=== PATIENT | male | born 1955 | race Caucasian/White ===

== ENCOUNTER 2018-02-21 22:50 | Inpatient (IN) | payer OTHER ==
[~2018-02-21] VITALS: Ht 177.8 cm; Wt 108.0 kg
[2018-02-21 23:20] LABS: BASOPHILS % (AUTO) 0 % (0-10); EOSINOPHILS # (AUTO) 0.2 10^3/uL (0.0-0.3); EOSINOPHILS % (AUTO) 3 % (0-10); HEMATOCRIT 50 % (40-54); HEMOGLOBIN 18.5 G/DL (13.3-17.7); LYMPHOCYTES # (AUTO) 2.2 X 10^3 (1.0-4.0); LYMPHOCYTES % (AUTO) 25 % (12-44); MEAN CORPUSCULAR HEMOGLOBIN 34 PG (25-34); MEAN CORPUSCULAR HGB CONC 37 G/DL (32-36); MEAN CORPUSCULAR VOLUME 91 FL (80-99); MEAN PLATELET VOLUME 11.2 FL (7.4-10.4); MONOCYTES # (AUTO) 0.7 X 10^3 (0.0-1.0); MONOCYTES % (AUTO) 8 % (0-12); NEUTROPHILS # (AUTO) 5.8 X 10^3 (1.8-7.8); NEUTROPHILS % (AUTO) 65 % (42-75); PLATELET COUNT 154 10^3/uL (130-400); RED BLOOD COUNT 5.51 10^6/uL (4.35-5.85); RED CELL DISTRIBUTION WIDTH 13.5 % (10.0-14.5); WHITE BLOOD COUNT 9.1 10^3/uL (4.3-11.0)
--- NOTE | 2018-02-21 23:28 | ED Fall/Injury ---
General Chief Complaint: Head/Cervical Problems Stated Complaint: FALL;NECK PAIN Source: patient, family Exam Limitations: clinical condition History of Present Illness Date Seen by Provider: Feb 21, 2018 Time Seen by Provider: 23:00 Initial Comments Here with report of anterior neck injury. Patient was apparently walking back from his garage in the dark when he tripped over a chair and then struck his neck on the leg of the chair. Swelling noted. Patient is coughing up blood. Report shortness of air with some stridor. He is having somewhat difficulty talking. Occurred around 930 p.m. Denies other injury. Occurred: this evening Severity: moderate, severe Injuries/Pain Location: neck Context: tripped Loss of Consciousness: no loss of consciousness Modifying Factors: Worse With Movement Associated Symptoms (Fall): No Abdominal Pain, No Chest Pain, No Confusion, No Nausea/Vomiting; Shortness of Air Allergies and Home Medications Allergies Coded Allergies: No Known Drug Allergies (Unverified , 02/21/18) Patient Home Medication List Home Medication List Reviewed: Yes (takes 2 meds for blood pressure.) Review of Systems Review of Systems Constitutional: see HPI; No chills, No fever Eyes: No Symptoms Reported Ears, Nose, Mouth, Throat: see HPI, throat pain, throat swelling Respiratory: dyspnea on exertion, short of breath, stridor Cardiovascular: no symptoms reported Gastrointestinal: no symptoms reported; No abdominal pain, No nausea, No vomiting Genitourinary: no symptoms reported Review of systems Limited due to patient's clinical condition. All Other Systems Reviewed Negative Unless Noted: Yes Past Rspbmth-Sccihg-Tvriml Hx Past Med/Social Hx: Reviewed Nursing Past Med/Soc Hx Patient Social History Alcohol Use: Regular Use Alcohol Beverage of Choice: Beer Recreational Drug Use: Yes (mj) Smoking Status: Current Everyday Smoker Past Medical History Surgeries: No Respiratory: Yes Sleep Apnea, COPD Cardiac: Yes Hypertension Neurological: No Genitourinary: No Gastrointestinal: No Musculoskeletal: Yes Gout Cancer: No Family Medical History Reviewed Nursing Family Hx No Pertinent Family Hx Physical Exam Vital Signs Vital Signs - First Documented 02/21/18 02/21/18 22:50 23:43 Pulse 73 Resp 14 B/P (MAP) 153/117 (129) Pulse Ox 94 O2 Delivery Room Air O2 Flow Rate 10.00 FiO2 100 Capillary Refill : Height, Weight, BMI Height: '" Weight: lbs. oz. kg; BMI Method: General Appearance: WD/WN, mild distress HEENT: other (bilateral scleral injection. Swelling noted anterior Neck below the larynx with stridorous breathing) Neck: full range of motion, supple, other (swelling to the mid neck anterior below the cricothyroid cartilage.) Cardiovascular: regular rate, rhythm, no murmur Respiratory: no accessory muscle use, respiratory distress, stridor, wheezing, expiration Gastrointestinal: non tender, soft Back: normal inspection, no CVA tenderness, no vertebral tenderness Extremities: non-tender, normal inspection Neurologic/Psychiatric: alert, oriented x 3 Skin: warm/dry, other (erythema and small abrasion to the anterior neck with swelling noted below the area of the cricothyroid cartilage.) Clyde Coma Score Best Eye Response: (4) Open Spontaneously Best Verbal Response: (5) Oriented Best Motor Response: (6) Obeys Commands Progress/Results/Core Measures Results/Orders Lab Results Laboratory Tests Test 02/21/18 23:00 02/22/18 01:40 02/22/18 01:51 Range/Units White Blood Count 9.1 4.3-11.0 10^3/uL Red Blood Count 5.51 4.35-5.85 10^6/uL Hemoglobin 18.5 H 13.3-17.7 G/DL Hematocrit 50 40-54 % Mean Corpuscular Volume 91 80-99 FL Mean Corpuscular Hemoglobin 34 25-34 PG Mean Corpuscular Hemoglobin Concent 37 H 32-36 G/DL Red Cell Distribution Width 13.5 10.0-14.5 % Platelet Count 154 130-400 10^3/uL Mean Platelet Volume 11.2 H 7.4-10.4 FL Neutrophils (%) (Auto) 65 42-75 % Lymphocytes (%) (Auto) 25 12-44 % Monocytes (%) (Auto) 8 0-12 % Eosinophils (%) (Auto) 3 0-10 % Basophils (%) (Auto) 0 0-10 % Neutrophils # (Auto) 5.8 1.8-7.8 X 10^3 Lymphocytes # (Auto) 2.2 1.0-4.0 X 10^3 Monocytes # (Auto) 0.7 0.0-1.0 X 10^3 Eosinophils # (Auto) 0.2 0.0-0.3 10^3/uL Basophils # (Auto) 0.0 0.0-0.1 10^3/uL Prothrombin Time 12.6 12.2-14.7 SEC INR Comment 0.9 0.8-1.4 Activated Partial Thromboplast Time 29 24-35 SEC Sodium Level 139 135-145 MMOL/L Potassium Level 3.2 L 3.6-5.0 MMOL/L Chloride Level 101 98-107 MMOL/L Carbon Dioxide Level 26 21-32 MMOL/L Anion Gap 12 5-14 MMOL/L Blood Urea Nitrogen 13 7-18 MG/DL Creatinine 0.74 0.60-1.30 MG/DL Estimat Glomerular Filtration Rate > 60 BUN/Creatinine Ratio 18 Glucose Level 95 70-105 MG/DL Calcium Level 9.6 8.5-10.1 MG/DL Corrected Calcium 8.5-10.1 MG/DL Total Bilirubin 0.5 0.1-1.0 MG/DL Aspartate Amino Transf (AST/SGOT) 26 5-34 U/L Alanine Aminotransferase (ALT/SGPT) 29 0-55 U/L Alkaline Phosphatase 80 40-136 U/L Total Protein 7.9 6.4-8.2 GM/DL Albumin 4.6 H 3.2-4.5 GM/DL Serum Alcohol 111 H <10 MG/DL Urine Color YELLOW Urine Clarity SLIGHTLY CLOUDY Urine pH 5 5-9 Urine Specific [place] 1.010 L 1.016-1.022 Urine Protein 2+ H NEGATIVE Urine Glucose (UA) NEGATIVE NEGATIVE Urine Ketones NEGATIVE NEGATIVE Urine Nitrite NEGATIVE NEGATIVE Urine Bilirubin NEGATIVE NEGATIVE Urine Urobilinogen NORMAL NORMAL MG/DL Urine Leukocyte Esterase NEGATIVE NEGATIVE Urine RBC (Auto) NEGATIVE NEGATIVE Urine RBC NONE /HPF Urine WBC NONE /HPF Urine Squamous Epithelial Cells RARE /HPF Urine Crystals NONE /LPF Urine Bacteria FEW H /HPF Urine Casts PRESENT /LPF Urine Hyaline Casts 2-5 H /LPF Urine Mucus NEGATIVE /LPF Urine Culture Indicated NO Blood Gas Puncture Site RIGHT RAD Blood Gas Patient Temperature 96.8 Arterial Blood pH 7.28 *L 7.37-7.43 Arterial Blood Partial Pressure CO2 54 H 35-45 MMHG Arterial Blood Partial Pressure O2 66 L 79-93 MMHG Arterial Blood HCO3 25 23-27 MMOL/L Arterial Blood Total CO2 26.7 21.0-31.0 MMOL/L Arterial Blood Oxygen Saturation 94 94-100 % Arterial Blood Base Excess -1.1 -2.5-2.5 MMOL/L Shashank Test POSITIVE Blood Gas Ventilator Setting YES Blood Gas Inspired Oxygen 100% My Orders Orders - SRIKANTH PARRA MD Alcohol (02/21/18 23:11) Cbc With Automated Diff (02/21/18 23:11) Comprehensive Metabolic Panel (02/21/18 23:11) Chest 1 View, Ap/Pa Only (02/21/18 23:11) Cervical Spine 1 View (02/21/18 23:11) Saline Lock/Iv-Start (02/21/18 23:11) Protime With Inr (02/21/18 23:21) Partial Thromboplastin Time (02/21/18 23:21) Chest 1 View, Ap/Pa Only (02/21/18 ) Lidocaine 1% Inj 20 Ml (Xylocaine 1% Inj (02/21/18 23:37) Ketamine Injection (Ketalar Injection) (02/21/18 23:38) Ns Iv 1000 Ml (Sodium Chloride 0.9%) (02/21/18 23:48) Ct Neck (Soft Tissue) W (02/22/18 00:01) Glycopyrrolate Injection (Robinul Inject (02/21/18 23:52) Propofol Drip (Icu) (Diprivan Drip (Icu) (02/21/18 23:54) Chest 1 View, Ap/Pa Only (02/22/18 ) Albuterol/Ipra Inhalation Soln (Duoneb I (02/22/18 00:01) Iohexol Injection (Omnipaque 350 Mg/Ml 1 (02/22/18 01:00) Ns (Ivpb) (Sodium Chloride 0.9%) (02/22/18 01:00) Midazolam Injection (Versed Injection) (02/22/18 01:14) Ua Culture If Indicated (02/22/18 01:26) Sputum Culture (02/22/18 01:26) Albuterol/Ipra Inhalation Soln (Duoneb I (02/22/18 01:40) Arterial Blood Gas (02/22/18 01:54) Medications Given in ED Current Medications Medications Dose Ordered Sig/Endy Route Start Time Stop Time Status Last Admin Dose Admin Albuterol/ Ipratropium 3 ml STK-MED ONCE .ROUTE 02/22/18 00:01 02/22/18 00:04 DC 02/22/18 00:04 3 ML Glycopyrrolate 0.4 mg STK-MED ONCE .ROUTE 02/21/18 23:52 02/21/18 23:56 DC 02/22/18 01:00 0.4 MG Iohexol 100 ml ONCE ONCE IV 02/22/18 01:00 02/22/18 01:01 DC 02/22/18 00:59 75 ML Ketamine HCl 500 mg STK-MED ONCE .ROUTE 02/21/18 23:38 02/21/18 23:41 DC 02/22/18 01:00 500 MG Lidocaine HCl 20 ml STK-MED ONCE .ROUTE 02/21/18 23:37 02/21/18 23:40 DC 02/21/18 23:43 20 ML Midazolam HCl 5 mg STK-MED ONCE .ROUTE 02/22/18 01:14 02/22/18 01:17 DC 02/22/18 01:26 5 MG Propofol 100 ml @ ud STK-MED ONCE IV 02/21/18 23:54 02/21/18 23:58 DC 02/22/18 00:58 0 MLS/HR Sodium Chloride 250 ml ONCE ONCE IV 02/22/18 01:00 02/22/18 01:01 DC 02/22/18 01:00 80 ML Sodium Chloride 1,000 ml @ ud STK-MED ONCE .ROUTE 02/21/18 23:48 02/21/18 23:51 DC 02/22/18 01:00 0 MLS/HR Vital Signs/I&O 02/21/18 02/21/18 02/22/18 02/22/18 22:50 23:43 00:04 00:48 Pulse 73 70 Resp 14 14 B/P (MAP) 153/117 (129) Pulse Ox 94 100 94 93 O2 Delivery Room Air T Piece Ambu Bag O2 Flow Rate 10.00 10.00 FiO2 100 100 100 02/22/18 00:58 Pulse 82 B/P (MAP) 173/111 Progress Progress Note : Progress Note Seen and evaluated. Concerns for tracheal injury due to history and stridorous sounds with coughing of blood. I discussed the case with Dr. Lazar and will call anesthesiology. I did discuss the case with Dr. Egan at 2306. We will get on-call nurse radio communication coordinator in for help with intubation as patient has stridor with tracheal trauma and concerns for difficult intubation. I did discuss the case with Dr. Lazar at 2300 and he agrees with intubation. This will be a complex intubation and we will consider intubating with bronchoscope. IV, labs, chest x-ray and lateral neck x-ray ordered. Pending arrival of anesthesiology team. I did discuss my concerns and findings with the patient and family who agree to intubation. In the interim we have patient on humidified high flow O2 help with breathing and preoxygenation. Monitor patient. 2338: Anesthesia at bedside and we are working on plan for intubation that is likely to be difficult. 2343: We will initiate lidocaine neb treatment. 2347: Patient having some increased compromise so we will proceed with intubation via bronchoscope through intubating LMA. 2358: Patient received a total of 40 mg of ketamine and 2.5 mg of Versed. Tube placed by anesthesia. 20 mg of etomidate and 200 mg of succinylcholine was given at time of tube placement and exchange. Patient also received glycopyrrolate from anesthesia her secretions. 0011: Post intubation ET tube and OG tube placement chest x-ray shows tubes in good position. Patient initiated on propofol drip. CT neck ordered. Family updated. 0022: Patient to CT scan. 0052: CT scan complete but pending results. I did update Dr. Lazar on the case as I am concerned about air in the soft tissue in the neck. We will review the case with Dr. Prieto and consider admission versus transfer. 0130: CT results noted. I discussed the case with Dr. Prieto as well as on-call for ENT. Dr. Ramos is out of town until 02/26/18. Dr. Prieto is okay with admission as this is likely supportive care in nature and monitoring on vent while tracheal disruption heals. Patient to be admitted to Dr. Lazar with Dr. Prieto on consult to the ICU. I did advance the tube 2 cm to push balloon further past tracheal disruption. Patient on Diprivan drip and has had 2 doses of rocuronium. 0205: Current vent settings rate of 16 with tidal volume of 500 and PEEP of 8 and FiO2 50 percent. ABG has been ordered. Admit to ICU, critical but stable condition. Family updated on current findings and therapy. Patient is another care of [place]. concerned because they will need to be updated on patient condition and status. Diagnostic Imaging Diagonstic Imaging: Xray Plain Films/CT/US/NM/MRI: chest Comments No acute Diagonstic Imaging: Xray Plain Films/CT/US/NM/MRI: other (neck bilateral view) Comments One view lateral neck shows some air within the soft tissue Diagonstic Imaging: Xray Plain Films/CT/US/NM/MRI: chest Comments Endotracheal tube in good position and OG tube in good position Diagonstic Imaging: CT Plain Films/CT/US/NM/MRI: other Comments CT soft tissue neck with contrast shows fracture of thyroid cartilage, left parasagittal and right laterally, and resulting widening of the thyroid cartilage angulation. Extensive soft tissue gas and neck, most prominent towards left, likely related to airway perforation from thyroid Aurelia fracture. Associated fat stranding/edema. ET and NG tube noted. Reviewed: Reviewed Night Josafat Study, Reviewed by Me Critical Care Note Critical Care Start Time: 23:00 Stop Time: 02:05 Total Time (minutes) 60 Departure Communication (Admissions) Time/Spoke to Admitting Phy: 00:52 Time/Spoke to Consulting Phy: 01:30 Impression Primary Impression: Fracture, thyroid cartilage closed Qualified Codes: S12.8XXA - Fracture of other parts of neck, initial encounter Additional Impression: Injury of trachea Qualified Codes: S19.82XA - Other specified injuries of cervical trachea, initial encounter Disposition: ADMITTED INPATIENT Condition: Critical Admissions Decision to Admit Reason: Admit from ER (Trauma) Decision to Admit/Date: Feb 22, 2018 Time/Decision to Admit Time: 00:52 Departure-Patient Inst. Referrals: UNKNOWN (PCP) Primary Care Physician SRIKANTH PARRA MD Feb 21, 2018 23:28
[2018-02-21 23:32] LABS: INR 0.9 (0.8-1.4); PROTHROMBIN TIME PATIENT 12.6 SEC (12.2-14.7)
[2018-02-21 23:34] LABS: ALANINE AMINOTRANSFERASE 29 U/L (0-55); ALBUMIN 4.6 GM/DL (3.2-4.5); ALKALINE PHOSPHATASE 80 U/L (40-136); BILIRUBIN,TOTAL 0.5 MG/DL (0.1-1.0); BUN/CREATININE RATIO 18; CALCIUM 9.6 MG/DL (8.5-10.1); CARBON DIOXIDE 26 MMOL/L (21-32); CHLORIDE 101 MMOL/L (98-107); CREATININE SERUM 0.74 MG/DL (0.60-1.30); GFR ESTIMATED > 60; GLUCOSE 95 MG/DL (70-105); POTASSIUM 3.2 MMOL/L (3.6-5.0); SODIUM 139 MMOL/L (135-145); TOTAL PROTEIN 7.9 GM/DL (6.4-8.2)
[2018-02-21] MEDS ORDERED: LIDOCAINE 1% INJ 20 ML 20 ML VIAL ONE (23:37)
[2018-02-21] MEDS ORDERED: KETAMINE HCL 100 MG/ML 5 ML VIAL ONE (23:38)
[2018-02-21] MEDS ORDERED: NS IV 1000 ML 1,000 ML ONE (23:48)
[2018-02-21] MEDS ORDERED: GLYCOPYRROLATE 0.2 MG/ML (ROBINUL) 2 ML VIAL ONE (23:52)
[2018-02-21] MEDS ORDERED: PROPOFOL DRIP (ICU) 100 ML IV ONE (23:54)
[2018-02-22] VITALS (32 sets, daily range): BP systolic 99–134; BP diastolic 63–81
[2018-02-22] MEDS ORDERED: RT-ALBUTEROL/IPRATROPIUM 3 ML (DUONEB) VIAL ONE ×2 (00:01→01:40)
--- NOTE | 2018-02-22 00:42 | Anesthesia-Procedure Note ---
Procedures/Interventions Procedure Start/Stop/Diagnosis Date of Procedure: Feb 21, 2018 Start Time: 23:38 Stop Time: 23:55 Intubation RSI: No 100% pre-Ox, [id number]: Yes Intubation Method: orotracheal Breath Sounds after Intubation: bilateral-equal ETT Securred @ (cm): 22 Intubated with ease: No Post Intubation Xray-done: Yes Care turned over to: ED staff Additional Procedures Procedures Called to ED to assist with an intubation with a traumatic neck injury. Arrived to ED and spoke with Dr. Hay and the decision was made that the fiberoptic intubating scope may be required. I retrieved the fiberoptic scop and tower than returned to the ED. After a quick evaluation of the patient it was decided that I would perform the necessary intubation with assistance from Dr. Hay. Patient had what appeared to be an increased work of breathing and audible stridor. A Lidocaine breathing treatment was given. Shortly after the breathing treatment was started Patient felt like he could not breath. 20 mg of Ketamine was given and 1 mg of Versed at this time. Once patient was slightly more relaxed I asked the patient to open his mouth and inserted a 3.5 Air-q LMA. The BVM was quickly attached to the LMA and positive pressure assisted ventilation was performed. With the decreased work of breathing, I used the fiberoptic intubating scope to look deeper into the patients airway through the LMA. The patient was then given 20mg more of Ketamine and 1.5 mg of Versed. I placed the fiberoptic intubating scope back through the LMA. A small opening was note to the right of midline, maneuvered the scope through the small opening and noted the tracheal rings. The 7.0 oett that was loaded onto the intubating scope was then advanced into the trachea over the scope. The scope was removed and the BVM was placed on the oett and positive pressure ventilation was performed by myself. ETCO2 color change was noted as well as bilateral breath sounds by Dr. Hay. Medication for sedation and paralyzation was ordered by Dr. Hay. I gave 0.4mg of glycopyrrolate to help decrease secretions. The Air-Q removal stylet was then used to remove the LMA from around the oett. Breathe sounds were then checked again by Dr. Hay noting no left chest breath sounds, oett pulled back to 22 cm at the lip and left sides breath sounds returned. Oett care to RT, and patient care to ED staff. Brief updated given to significant other. CORWIN REYNOLDS CRNA Feb 22, 2018 00:42
[2018-02-22] MEDS ORDERED: IOHEXOL 350 MG/ML 100 ML (OMNIPAQUE 350) VIAL IV ONE (01:00)
[2018-02-22] MEDS ORDERED: NS 250 ML (IVPB) BAG IV ONE (01:00)
[2018-02-22] MEDS ORDERED: MIDAZOLAM 5 MG/5 ML (VERSED) VIAL ONE (01:14)
[2018-02-22 01:51] LABS: BILIRUBIN,URINE NEGATIVE (NEGATIVE); CLARITY,URINE SLIGHTLY CLOUDY; COLOR,URINE YELLOW; GLUCOSE, URINE (UA) NEGATIVE (NEGATIVE); KETONES,URINE NEGATIVE (NEGATIVE); LEUKOCYTE ESTERASE ,URINE NEGATIVE (NEGATIVE); NITRITE,URINE NEGATIVE (NEGATIVE); PH,URINE 5 (5-9); PROTEIN,URINE 2+ (NEGATIVE); UROBILINOGEN,URINE NORMAL (NORMAL)
[2018-02-22 02:00] LABS: ABG BASE EXCESS -1.1 MMOL/L (-2.5-2.5); ABG OXYGEN SATURATION 94 % (94-100); ABG PCO2 54 MMHG (35-45); ABG PO2 66 MMHG (79-93); ABG TCO2 26.7 MMOL/L (21.0-31.0)
[2018-02-22 02:01] LABS: ABG PH 7.28 (7.37-7.43); ALLENS TEST POSITIVE; INSPIRED O2 100%; PATIENT TEMP 96.8; VENTILATOR YES
[2018-02-22 02:04] LABS: BACTERIA,URINE FEW /HPF; SQUAMOUS EPITHELIAL CELL,UR RARE /HPF
[2018-02-22] MEDS ORDERED: PROPOFOL DRIP (ICU) 100 ML IV SCH ×2 (03:15)
[2018-02-22] MEDS ORDERED: CATHETER FLUSH 10 ML SYR IV PRN (03:15)
[2018-02-22] MEDS ORDERED: NS IV 1000 ML 1,000 ML IV SCH (03:15)
[2018-02-22 03:40] LABS: BUN/CREATININE RATIO 18; CALCIUM 9.7 MG/DL (8.5-10.1); CARBON DIOXIDE 25 MMOL/L (21-32); CHLORIDE 101 MMOL/L (98-107); CREATININE SERUM 0.74 MG/DL (0.60-1.30); GFR ESTIMATED > 60; GLUCOSE 95 MG/DL (70-105); MAGNESIUM 2.3 MG/DL (1.8-2.4); PHOSPHORUS 2.9 MG/DL (2.3-4.7); POTASSIUM 3.2 MMOL/L (3.6-5.0); SODIUM 139 MMOL/L (135-145); TRIGLYCERIDES 225 MG/DL (<150)
[2018-02-22] MEDS ORDERED: NS (IVPB) 100 ML ONE (03:40)
[2018-02-22] MEDS ORDERED: fentaNYL (OMNICELL DRIP KIT ONLY) 250 MCG/5 ML AMP ONE (03:40)
[2018-02-22 04:08] LABS: ABG BASE EXCESS 2.4 MMOL/L (-2.5-2.5); ABG OXYGEN SATURATION 84 % (94-100); ABG PCO2 48 MMHG (35-45); ABG PH 7.37 (7.37-7.43); ABG PO2 44 MMHG (79-93); ABG TCO2 28.8 MMOL/L (21.0-31.0)
[2018-02-22 04:09] LABS: ALLENS TEST POSITIVE; INSPIRED O2 21%; VENTILATOR YES
[2018-02-22] MEDS: inSUlin ASPART (NovoLOG) 1 UNIT/0.01 ML (CHARGE PER UNIT) SC SCH ×3 (04:25→12:29)
[2018-02-22 05:18] LABS: ABG BASE EXCESS 2.6 MMOL/L (-2.5-2.5); ABG OXYGEN SATURATION 95 % (94-100); ABG PCO2 50 MMHG (35-45); ABG PH 7.36 (7.37-7.43); ABG PO2 67 MMHG (79-93); ABG TCO2 29.4 MMOL/L (21.0-31.0)
[2018-02-22 05:19] LABS: ALLENS TEST POSITIVE; INSPIRED O2 35%; VENTILATOR YES
[2018-02-22] MEDS ORDERED: CHLORHEXIDINE 0.12% SOLN 15 ML (PERIDEX) UDC PO PRN (05:30)
[2018-02-22] MEDS ORDERED: fentaNYL INJECTION 100 MCG/2 ML AMP IV PRN (05:30)
[2018-02-22] MEDS ORDERED: ONDANSETRON 4 MG/2 ML (SDV) Z0FRAN IV PRN (05:30)
[2018-02-22] MEDS: fentaNYL 1,250 MCG/NS 250 ML DRIP IV SCH ×4 (05:32→14:55)
[2018-02-22 05:42] LABS: BUN/CREATININE RATIO 21; CALCIUM 8.7 MG/DL (8.5-10.1); CARBON DIOXIDE 24 MMOL/L (21-32); CHLORIDE 105 MMOL/L (98-107); CREATININE SERUM 0.66 MG/DL (0.60-1.30); GFR ESTIMATED > 60; GLUCOSE 98 MG/DL (70-105); LIPASE 19 U/L (8-78); MAGNESIUM 2.1 MG/DL (1.8-2.4); PHOSPHORUS 3.9 MG/DL (2.3-4.7); POTASSIUM 3.3 MMOL/L (3.6-5.0); SODIUM 140 MMOL/L (135-145); TRIGLYCERIDES 277 MG/DL (<150)
--- NOTE | 2018-02-22 05:42 | Pulmonary Consultation ---
History of Present Illness History of Present Illness Date of Consultation 02/22/18 05:37 Time Seen by Provider: 05:00 Date of Admission History of Present Illness 62yo male presented to ED s/p mechanical fall and striking his neck on leg of chair. Pt started coughing up blood and stridor. Pt was also having dysphonia. PT was intubated in ED per anesthesia. CT of neck shows ruptured thyroid cartilage. Unable to obtain ROS pt is sedated on ventilator. Allergies and Home Medications Allergies Coded Allergies: No Known Drug Allergies (Unverified , 02/21/18) Past Tvgcbwz-Kmwprc-Jtmmcp Hx Past Med/Social Hx: Reviewed Nursing Past Med/Soc Hx Patient Social History Alcohol Use: Regular Use Number of Drinks Today: AA Alcohol Beverage of Choice: Beer Recreational Drug Use: Yes (mj) Smoking Status: Current Everyday Smoker Type Used: Cigarettes 2nd Hand Smoke Exposure: No Recent Foreign Travel: No Contact w/Someone Who Travel: No Recent Infectious Disease Expo: No Recent Hopitalizations: No Physical Abuse: No Sexual Abuse: No Seasonal Allergies Seasonal Allergies: No Past Medical History Surgeries: No Respiratory: Yes Sleep Apnea, COPD Currently Using CPAP: Yes Currently Using BIPAP: No Cardiac: Yes Hypertension Neurological: No Sexually Transmitted Disease: No HIV/AIDS: No Genitourinary: No Gastrointestinal: No Musculoskeletal: No Gout Endocrine: No HEENT: No Cancer: No Psychosocial: No Nursing Suicide Risk Score: 0 Integumentary: No Blood Disorders: No Adverse Reaction/Blood Tranf: No Family Medical History Reviewed Nursing Family Hx No Pertinent Family Hx Review of Systems Time Seen by Provider: 05:00 Sepsis Event Evaluation Height, Weight, BMI Height: 5'10.00" Weight: 238lbs. 0.0oz. 107.840531ma; 34.2 BMI Method:Stated Exam Exam Vital Signs Date Time Temp Pulse Resp B/P (MAP) Pulse Ox O2 Delivery O2 Flow Rate FiO2 02/22/18 05:00 52 14 104/67 (79) 100 Mechanical Ventilator 35.00 02/22/18 04:00 57 19 99/69 (79) 99 Mechanical Ventilator 21.00 02/22/18 03:45 60 19 100/63 (75) 99 Mechanical Ventilator 21.00 02/22/18 03:43 82 99 21 02/22/18 03:30 62 20 100/65 (77) 99 Mechanical Ventilator 21.00 02/22/18 03:28 107/70 02/22/18 03:15 62 22 107/70 (82) 98 Mechanical Ventilator 21.00 02/22/18 03:04 61 26 99 40 02/22/18 03:00 58 25 107/70 (82) 100 Mechanical Ventilator 21.00 02/22/18 03:00 100 Mechanical Ventilator 21 02/22/18 02:57 56 02/22/18 02:51 97.7 61 16 132/79 (96) 100 Mechanical Ventilator 21.00 02/22/18 02:30 73 14 107/67 99 Nasal Cannula 02/22/18 01:58 77 16 100 50 02/22/18 01:45 78 100 100 02/22/18 00:58 82 173/111 02/22/18 00:48 70 14 93 100 02/22/18 00:04 94 Ambu Bag 10.00 100 02/21/18 23:43 100 T Piece 10.00 100 02/21/18 22:50 73 14 153/117 (129) 94 Room Air Height & Weight Height: 5'10.00" Weight: 238lbs. 0.0oz. 107.718813cl; 34.2 BMI Method:Stated General Appearance: No Apparent Distress, WD/WN, Other (sedated on ventilator) HEENT: PERRL/EOMI, Normal ENT Inspection, Pharynx Normal Neck: Full Range of Motion, Normal Inspection, Non Tender, Supple Respiratory: Chest Non Tender, Normal Breath Sounds, No Accessory Muscle Use, No Respiratory Distress Cardiovascular: Regular Rate, Rhythm, No Edema, No Gallop, No JVD Capillary Refill: Less Than 3 Seconds Gastrointestinal: non tender, soft Extremity: Normal Capillary Refill, Normal Inspection, Normal Range of Motion Skin: Normal Color, Warm/Dry Lymphatic: No Adenopathy Results Lab Laboratory Tests 02/21/18 23:00 Assessment/Plan Assessment/Plan S/p fall with tracheal injury/thyroid cartilage fracture- causing subcutaneous emphysema in neck and compromised airway with stridor -PT emergently intubated per anesthesia for airway protection and impending respiratory failure. -Dr. Lazar is following -Dr. Ramos is consulted however out of town until Sunday. -I discussed with radiology and patient is going to need surgical repair of his trachea. I have also talked with [facility] Dr. Whiting ENT who agrees to with need of transfer. I will have patient transferred to [place] via helicopter if possible secondary to him being on ventilator. He is cardiovascularly stable at this time. RN is keeping him heavily sedated so less risk of loosing airway. Acute respiratory failure Obesity with JAYLAN Hypokalemia -replace per protocol Total time spent with patient, medical staff and discussing patient with radiology, and [facility] is 120min. Critical Care: Critically Ill Patient Time spent with patient (mins): 120 KYLAH HELM DO Feb 22, 2018 05:42
[2018-02-22] MEDS ORDERED: DILTIAZEM 25 MG/5 ML INJ (CARDIZEM) VIAL ONE (05:44)
[2018-02-22] MEDS ORDERED: POTASSIUM CL 10MEQ/50ML IVPB 50 ML IV SCH (06:00)
[2018-02-22] MEDS ORDERED: KCL 20 MEQ TAB (K-DUR) PO SCH (06:00)
[2018-02-22] MEDS ORDERED: MAGNESIUM 1 GM/100 ML IVPB 100 ML IV SCH (06:00)
[2018-02-22] MEDS ORDERED: inSUlin ASPART (NovoLOG) 1 UNIT/0.01 ML (CHARGE PER UNIT) SC SCH (06:00)
[2018-02-22] MEDS ORDERED: AMIODARONE 150 MG/3 ML (CORDARONE) AMP IV ONE (06:01)
[2018-02-22] MEDS: RT-ALBUTEROL/IPRATROPIUM 3 ML (DUONEB) VIAL INH SCH ×3 (06:33→14:59)
--- NOTE | 2018-02-22 07:11 | Diagnostic Imaging Report ---
INDICATION: Check NG tube placement. COMPARISON: 02/22/2018 at 12:01 a.m. FINDINGS: Single view of the chest demonstrates ET tube in the mid upper trachea. NG tube is well within the stomach. Aeration of lungs is unchanged from prior exam. There is no pneumothorax. IMPRESSION: Well-positioned support lines. No pneumothorax/ Dictated by: Dictated on workstation # [id number]
--- NOTE | 2018-02-22 07:12 | Diagnostic Imaging Report ---
Indication: Fall, intubated. Comparison: None. Findings: Single view of the chest demonstrates the ET tube in the mid to upper trachea. There is hilar and left basilar atelectasis. There is no pneumothorax. The heart is prominent without pulmonary edema. Impression: 1. ET tube mid to upper trachea. 2. Perihilar and left basilar atelectasis. 3. Not mentioned above, questionable narrowing of the distal trachea. 4. No pneumothorax identified. Dictated by: Dictated on workstation # [id number]
--- NOTE | 2018-02-22 07:14 | Diagnostic Imaging Report ---
INDICATION: Fall, neck injury. COMPARISON: None. FINDINGS: Single view of the chest demonstrates mild cardiac enlargement. Lungs are clear. There is some questionable mid to distal tracheal narrowing. Consider CT imaging. There is no pneumothorax or effusion. Osseous structures are age-appropriate. IMPRESSION: 1. Mild cardiac enlargement without pulmonary edema. 2. Questionable mid to distal tracheal narrowing. Consider CT imaging. Dictated by: Dictated on workstation # [id number]
--- NOTE | 2018-02-22 07:15 | Diagnostic Imaging Report ---
Indication: Fall, neck trauma. Comparison: None Findings: A single crosstable lateral view of the cervical spine demonstrates extensive abnormal subcutaneous air within the anterior neck. The tracheal air column is somewhat ill defined. Recommend CT imaging for further evaluation. The visualized hyoid bone and cervical spine appear grossly unremarkable. The prevertebral soft tissues are of normal caliber. Impression: Subcutaneous air within the anterior aspect of the neck. Recommend CT imaging to evaluate for airway injury. Dictated by: Dictated on workstation # [id number]
[2018-02-22] MEDS ORDERED: fentaNYL INJECTION 100 MCG/2 ML AMP INJ ONE (07:16)
[2018-02-22] MEDS ORDERED: ROCURONIUM 10 MG/ML 5 ML SYRINGE IV ONE (07:16)
[2018-02-22] MEDS ORDERED: ETOMIDATE IV SOLN 20 MG/10 ML VIAL IV ONE (07:16)
[2018-02-22] MEDS ORDERED: MIDAZOLAM 5 MG/5 ML (VERSED) VIAL IJ ONE (07:16)
[2018-02-22] MEDS: CATHETER FLUSH 10 ML SYR IV SCH ×2 (08:25→14:15)
--- NOTE | 2018-02-22 08:36 | Diagnostic Imaging Report ---
PROCEDURE: CT neck soft tissue with contrast. TECHNIQUE: Multiple contiguous axial images were obtained through the neck after the administration of contrast. INDICATION: Fall with injury to the neck resulting in respiratory distress and requiring intubation. FINDINGS: There is extensive laryngeal injury with thyroid cartilage fractures just left of midline anteriorly and posterior right laterally with the more midline anterior fragment diastased by about 4.4 mm and abnormal widening of the normal thyroidal cartilage angulation. The relationship of the cricoid cartilage appeared grossly intact and the cricoarytenoid relationships appeared normal however the left arytenoid is dislocated from the thyroid cartilage. Owing to airway disruption, there is extensive cervical subcutaneous emphysema greater left dissecting superiorly to the top of the margin of the [id number] and caudally into the upper mediastinum below the thoracic inlet. There is an ET tube present, the tip below the inlet in the upper thoracic trachea. There extensive edema and soft tissue hemorrhagic thickening glottic, supraglottic and extending cephalad all the way to the level of the nasopharynx. There is widening of the left cricothyroid space suspect for disruption of the cricothyroid joint. Arytenoid cartilage itself revealed no fracture. Subglottic trachea grossly unremarkable however intubation and balloon inflation limits its evaluation. There are advanced degenerative changes to the cervical spine, most severe at the C5-6 and C6-C7 level where there is a grade 1 retrolisthesis and a moderate canal stenosis. Cervical fracture or cervical spinal dislocation is not present. There is no apical pneumothorax. No fracture to the partially visualized sternum and manubrium as well as upper ribs is seen. Visualized intracranial structures appeared unremarkable. IMPRESSION: Extensive laryngeal injury with comminuted tracheal cartilage fractures, widening of the left-sided cricothyroid space, abnormal obtuse angulation of the thyroidal cartilage with the diastased left paramedian fragment anteriorly, extensive soft tissue gas consistent with airway disruption and extensive edema and soft tissue hematoma glottic, supraglottic and cephalad throughout the pharynx, left-sided arytenoid tracheal separation. Advanced cervical spondylosis and presumed chronic mild grade 1 degenerative listhesis but no spinal fracture identified. Vascular structures are suboptimally evaluated but showed no obvious injury. The presence of laryngeal fractures in agreement with the [facility] preliminary interpretation. Dictated by: Dictated on workstation # [id number]
[2018-02-22] MEDS ORDERED: THIAMINE 100 MG/ML 2 ML (VITAMIN B-1) VIAL IV SCH (09:00)
[2018-02-22] MEDS ORDERED: NICOTINE 21 MG (NICODERM) PATCH TD SCH (09:00)
[2018-02-22] MEDS ORDERED: PANTOPRAZOLE 40 MG (PROTONIX) VIAL IV SCH (09:00)
[2018-02-22] MEDS: POTASSIUM CL 10MEQ/50ML IVPB 50 ML IV SCH ×3 (09:14→12:30)
--- NOTE | 2018-02-22 09:52 | Physical Therapy Progress Note ---
Therapy Progress Note Patient transferring to [facility] for continued care. SHIVA PINEDA PT Feb 22, 2018 09:52
--- NOTE | 2018-02-22 10:13 | History & Physical-Surgical ---
History of Present Illness History of Present Illness Reason for visit/HPI Pt is a Trauma admit, who was intubated in the ER last night and admitted to ICU. HPI per ED: Here with report of anterior neck injury. Patient was apparently walking back from his garage in the dark when he tripped over a chair and then struck his neck on the leg of the chair. Swelling noted. Patient is coughing up blood. Report shortness of air with some stridor. He is having somewhat difficulty talking. Occurred around 930 p.m. Denies other injury. Occurred: this evening Severity: moderate, severe Injuries/Pain Location: neck Context: tripped Loss of Consciousness: no loss of consciousness Modifying Factors: Worse With Movement Associated Symptoms (Fall): No Abdominal Pain, No Chest Pain, No Confusion, No Nausea/Vomiting; Shortness of Air New information from this am; Radiology reread CT and thinks the trachea damage is more severe than previously thought and will need surgical repair. Spoke with regarding events of last night and plans for today. Pt cannot answer questions because he is intubated and sedated. Date of Admission Feb 22, 2018 at 01:55 Time Seen by Provider: 09:55 I consulted on this patient on 02/22/18 10:08 Attending Physician Kory Lazar DO Admitting Physician Unknown Consult Allergies and Home Medications Allergies Coded Allergies: No Known Drug Allergies (Unverified , 02/21/18) Patient Home Medication List Home Medication List Reviewed: Yes Past Bnrzugo-[id number]-Rdnvnl Hx Patient Social History Alcohol Use: Regular Use Number of Drinks Today: AA Recreational Drug Use: Yes (mj) Smoking Status: Current Everyday Smoker Type Used: Cigarettes 2nd Hand Smoke Exposure: No Recent Foreign Travel: No Contact w/Someone Who Travel: No Recent Infectious Disease Expo: No Recent Hopitalizations: No Physical Abuse Screen: No Sexual Abuse: No Seasonal Allergies Seasonal Allergies: No Surgeries History of Surgeries: No Respiratory History of Respiratory Disorde: Yes Respiratory Disorders: Sleep Apnea, COPD Cardiovascular History of Cardiac Disorders: Yes Cardiac Disorders: Hypertension Neurological History of Neurological Disord: No Reproductive System Sexually Transmitted Disease: No HIV/AIDS: No Genitourinary History of Genitourinary Disor: No Gastrointestinal History of Gastrointestinal Di: No Musculoskeletal History of Musculoskeletal Dis: No Musculoskeletal Disorders: Gout Endocrine History of Endocrine Disorders: No HEENT History of HEENT Disorders: No Cancer History of Cancer: No Psychosocial History of Psychiatric Problem: No Integumentary History of Skin or Integumenta: No Blood Transfusions History of Blood Disorders: No Adverse Reaction to a Blood Tr: No Family Medical History Significant Family History: No Pertinent Family Hx ( doesn't think his family has any HTN or DM) Review of Systems ROS-Unable to Obtain: unable to obtain, pt intubated and sedated. Got a few answers from Constitutional: see HPI EENTM: hoarseness, throat swelling Respiratory: dyspnea on exertion, hemoptysis Cardiovascular: No chest pain, No edema Gastrointestinal: No abdominal pain, No constipation, No diarrhea Physical Exam Vital Signs Vital Signs - First Documented 02/21/18 02/21/18 02/22/18 22:50 23:43 02:51 Temp 97.7 Pulse 73 Resp 14 B/P (MAP) 153/117 (129) Pulse Ox 94 O2 Delivery Room Air O2 Flow Rate 10.00 FiO2 100 Capillary Refill : Less Than 3 Seconds Height, Weight, BMI Height: 5'10.00" Weight: 238lbs. 0.0oz. 107.196587oh; 34.2 BMI Method:Stated General Appearance: WD/WN, Mild Distress (intubated and sedated) Eyes: Bilateral Eye PERRL, Bilateral Eye EOMI HEENT: No Scleral Icterus (L), No Scleral Icterus (R), No Other (pt has ET tube in place) Neck: Other (swelling of neck, ??crepitance) Respiratory: Lungs Clear, Normal Breath Sounds, No Accessory Muscle Use, No Respiratory Distress Cardiovascular: Regular Rate, Rhythm, No Murmur, Normal Peripheral Pulses Gastrointestinal: Normal Bowel Sounds, No Organomegaly, No Pulsatile Mass, Non Tender, Soft Rectal: Deferred Extremity: Normal Capillary Refill, Normal Inspection, Normal Range of Motion, Non Tender, No Calf Tenderness Neurologic/Psychiatric: Other (intubated, can't assess) Skin: Normal Color, Warm/Dry Lymphatic: No Adenopathy (neck, axilla or groin) Data Review Labs Laboratory Tests 02/21/18 23:00: White Blood Count 9.1, Red Blood Count 5.51, Hemoglobin 18.5H, Hematocrit 50, Mean Corpuscular Volume 91, Mean Corpuscular Hemoglobin 34, Mean Corpuscular Hemoglobin Concent 37H, Red Cell Distribution Width 13.5, Platelet Count 154, Mean Platelet Volume 11.2H, Neutrophils (%) (Auto) 65, Lymphocytes (%) (Auto) 25 , Monocytes (%) (Auto) 8, Eosinophils (%) (Auto) 3, Basophils (%) (Auto) 0, Neutrophils # (Auto) 5.8, Lymphocytes # (Auto) 2.2, Monocytes # (Auto) 0.7, Eosinophils # (Auto) 0.2, Basophils # (Auto) 0.0, Prothrombin Time 12.6, INR Comment 0.9, Activated Partial Thromboplast Time 29, Sodium Level 139, Potassium Level 3.2L, Chloride Level 101, Carbon Dioxide Level 25, Anion Gap 13 , Blood Urea Nitrogen 13, Creatinine 0.74, Estimat Glomerular Filtration Rate > 60, BUN/Creatinine Ratio 18, Glucose Level 95, Calcium Level 9.7, Corrected Calcium , Phosphorus Level 2.9, Magnesium Level 2.3, Total Bilirubin 0.5, Aspartate Amino Transf (AST/SGOT) 26, Alanine Aminotransferase (ALT/SGPT) 29, Alkaline Phosphatase 80, Total Protein 7.9, Albumin 4.6H, Triglycerides Level 225H, Serum Alcohol 111H 02/22/18 01:40: Urine Color YELLOW, Urine Clarity SLIGHTLY CLOUDY, Urine pH 5, Urine Specific [place] 1.010L, Urine Protein 2+H, Urine Glucose (UA) NEGATIVE, Urine Ketones NEGATIVE, Urine Nitrite NEGATIVE, Urine Bilirubin NEGATIVE, Urine Urobilinogen NORMAL, Urine Leukocyte Esterase NEGATIVE, Urine RBC (Auto) NEGATIVE, Urine RBC NONE, Urine WBC NONE, Urine Squamous Epithelial Cells RARE, Urine Crystals NONE , Urine Bacteria FEWH, Urine Casts PRESENT, Urine Hyaline Casts 2-5H, Urine Mucus NEGATIVE, Urine Culture Indicated NO 02/22/18 01:51: Blood Gas Puncture Site RIGHT RAD, Blood Gas Patient Temperature 96.8, Arterial Blood pH 7.28*L, Arterial Blood Partial Pressure CO2 54H, Arterial Blood Partial Pressure O2 66L, Arterial Blood HCO3 25, Arterial Blood Total CO2 26.7, Arterial Blood Oxygen Saturation 94, Arterial Blood Base Excess -1.1, Shashank Test POSITIVE, Blood Gas Ventilator Setting YES, Blood Gas Inspired Oxygen 100% 02/22/18 04:04: Blood Gas Puncture Site RIGHT RADIAL, Blood Gas Patient Temperature 97.0, Arterial Blood pH 7.37, Arterial Blood Partial Pressure CO2 48H, Arterial Blood Partial Pressure O2 44L, Arterial Blood HCO3 27, Arterial Blood Total CO2 28.8, Arterial Blood Oxygen Saturation 84L, Arterial Blood Base Excess 2.4, Shashank Test POSITIVE, Blood Gas Ventilator Setting YES, Blood Gas Inspired Oxygen 21% 02/22/18 04:24: Glucometer 102 02/22/18 05:11: Sodium Level 140, Potassium Level 3.3L, Chloride Level 105, Carbon Dioxide Level 24, Anion Gap 11, Blood Urea Nitrogen 14, Creatinine 0.66, Estimat Glomerular Filtration Rate > 60, BUN/Creatinine Ratio 21, Glucose Level 98, Lactic Acid Level 1.35, Calcium Level 8.7, Phosphorus Level 3.9, Magnesium Level 2.1, Triglycerides Level 277H, Lipase 19 02/22/18 05:13: Blood Gas Puncture Site LEFT RADIAL, Blood Gas Patient Temperature 97.0, Arterial Blood pH 7.36L, Arterial Blood Partial Pressure CO2 50H, Arterial Blood Partial Pressure O2 67L, Arterial Blood HCO3 28H, Arterial Blood Total CO2 29.4, Arterial Blood Oxygen Saturation 95, Arterial Blood Base Excess 2.6H, Shashank Test POSITIVE, Blood Gas Ventilator Setting YES, Blood Gas Inspired Oxygen 35% 02/22/18 09:17: Glucometer [address] of neck reading....... IMPRESSION: Extensive laryngeal injury with comminuted tracheal cartilage fractures, widening of the left-sided cricothyroid space, abnormal obtuse angulation of the thyroidal cartilage with the diastased left paramedian fragment anteriorly, extensive soft tissue gas consistent with airway disruption and extensive edema and soft tissue hematoma glottic, supraglottic and cephalad throughout the pharynx, left-sided arytenoid tracheal separation. Assessment/Plan Assessment/Plan Admission Diagonsis Tracheal Disruption Subcutaneous Air IMPRESSION: Extensive laryngeal injury with comminuted tracheal cartilage fractures, widening of the left-sided cricothyroid space, abnormal obtuse angulation of the thyroidal cartilage with the diastased left paramedian fragment anteriorly, extensive soft tissue gas consistent with airway disruption and extensive edema and soft tissue hematoma glottic, supraglottic and cephalad throughout the pharynx, left-sided arytenoid tracheal separation. Admission Status: Other (Pt being [facility]) Assessment/Plan Trauma activation Tracheal disruption - severe COPD Sleep Apnea HTN Pt will need bronchoscopy, EGD and visualization of the trachea. He will most likely need surgical intervention either by CV surgeon or experienced ENT; unfortunately we cannot offer that here and therefore will transfer pt to higher level of care. He has already been accepted at [place], we are just waiting on ICU bed availability. I discussed all of this with and answered all her questions. Clinical Quality Measures DVT/VTE Risk/Contraindication: Risk Factor Score Per Nursin RFS Level Per Nursing on Admit: 4+=Very High KORY LAZAR DO Feb 22, 2018 10:13
[2018-02-22] MEDS: PROPOFOL DRIP (ICU) 100 ML IV SCH ×3 (10:18→16:43)
--- NOTE | 2018-02-22 10:50 | Occ Therapy Progress Note ---
Therapy Progress Note Not seen by OT today. Intubated. Transferring to [place] for higher level of care. JOSE WILSON OT Feb 22, 2018 10:50
[2018-02-22] MEDS: LORazepam INJ 2 MG/ML (ATIVAN) VIAL IV PRN ×2 (11:19→16:52)
--- NOTE | 2018-02-28 09:07 | Physician Query-Final Dx ---
LIEN ASHRAF 02/28/18 0907: Final Diagnosis Give Final Diagnosis Please give Final Diagnosis KYLAH HELM DO 03/06/18 0725: Final Diagnosis Give Final Diagnosis S/p fall with tracheal injury/thyroid cartilage fracture- causing subcutaneous emphysema in neck and compromised airway with stridor Acute respiratory failure Obesity with JAYLAN Hypokalemia -replace per protocol LIEN ASHRAF Feb 28, 2018 09:07 KYLAH HELM DO Mar 06, 2018 07:25
== END 2018-02-22 17:03 | disposition short-term general hospital (02) | DRG 154 ==
LOC: EDUNIT# 22:50 → ER 22:51 → ICU 02-22 01:55 → UNDODISIN 02-25 04:27
PROVIDERS: ADMIT Surgery; ATTEND Surgery
PROC: 5A1935Z Respiratory Ventilation, Less than 24 Consecutive Hours (ICD-10-PCS; principal; 2018-02-22)
DX: S12.8XXA Fracture of other parts of neck, initial encounter (principal); T79.7XXA Traumatic subcutaneous emphysema, initial encounter; J96.00 Acute respiratory failure, unspecified whether with hypoxia or hypercapnia; G47.33 Obstructive sleep apnea (adult) (pediatric); F17.210 Nicotine dependence, cigarettes, uncomplicated; J44.9 Chronic obstructive pulmonary disease, unspecified; I10 Essential (primary) hypertension; E87.6 Hypokalemia; E66.9 Obesity, unspecified; Z68.34 Body mass index [BMI] 34.0-34.9, adult; W18.09XA Striking against other object with subsequent fall, initial encounter
CPT/HCPCS: 36415; 36600; 70491; 71045; 72020; 80048; 80053; 80320; 81000; 82805; 82962; 83036; 83605; 83690; 83735; 84100; 84478; 85025; 85610; 85730; 87070; 87081; 87205; 94002; 94640; 94799; 96360

== ENCOUNTER → 2019-02-20 | Outpatient (CLI) | payer OTHER ==
--- NOTE | 2019-02-20 12:38 | Diagnostic Imaging Report ---
INDICATION: Fall. Injury to the neck. Neck pain. COMPARISON: 02/22/2018 FINDINGS: Frontal, lateral, and open-mouth radiographic views of the cervical spine were obtained. Evaluation of static alignment demonstrates reversal of normal lordotic curvature epicentered at the C5 level. There is also slight grade I anterolisthesis at C4-C5 and slight grade I retrolisthesis at C5-C6. C7-T1 intervertebral disc space level is obscured. Open-mouth view shows normal C1-C2 alignment. There are moderate to advanced degenerative changes at the C5-C6 and C6-C7 levels consisting of intervertebral disc height loss with prominent anterior and posterior disc osteophyte complex formations. Vertebral body heights are maintained. There is no evidence of acute fracture. The surrounding soft tissue structures are unremarkable. Included portions of the lung apices show no additional acute abnormalities. IMPRESSION: 1. No acute fracture or dislocation of the cervical spine. 2. Multilevel degenerative changes, greatest at C5-C6 and C6-C7 levels. Dictated by: Dictated on workstation # [id number]
== END ==
LOC: RAD 08:09
PROVIDERS: ATTEND Nurse Practitioner Family
DX: S19.9XXA Unspecified injury of neck, initial encounter (principal); M47.812 Spondylosis without myelopathy or radiculopathy, cervical region; W19.XXXA Unspecified fall, initial encounter
CPT/HCPCS: 72040

== ENCOUNTER → 2019-10-03 | Outpatient (CLI) | payer OTHER ==
--- NOTE | 2019-10-03 10:03 | Diagnostic Imaging Report ---
EXAMINATION: Left shoulder, 3 views INDICATION: Left shoulder pain. COMPARISON: None available. FINDINGS: No fracture or acute osseous abnormality. Bony alignment is maintained. The humeral head is well-seated in the glenohumeral joint. There is no evidence of acromioclavicular joint separation. Degenerative changes are noted in the shoulder and acromioclavicular joints. Regional soft tissues are unremarkable. IMPRESSION: No acute fracture or dislocation. Degenerative changes involving the glenohumeral and acromioclavicular joints. Dictated by: Dictated on workstation # [id number]
== END ==
LOC: RAD 09:17
PROVIDERS: ATTEND Nurse Practitioner Adult Health
DX: M19.012 Primary osteoarthritis, left shoulder (principal)
CPT/HCPCS: 73030

== ENCOUNTER → 2021-09-20 | Outpatient (CLI) | payer OTHER ==
--- NOTE | 2021-09-20 17:28 | Diagnostic Imaging Report ---
EXAMINATION: CT chest without contrast (lung screening). TECHNIQUE: Multiple contiguous axial images were obtained through the chest without the use of intravenous contrast according to lung cancer screening protocol. All CT scans use one or more of the following dose optimizing techniques: automated exposure control, MA and/or KvP adjustment based on patient size and exam type or iterative reconstruction. HISTORY: 40 pack year history of smoking. COMPARISON: None available. FINDINGS: There is no edema or pneumonia. No pleural effusion. No pneumothorax. There is a 5.5 mm average diameter nodule in the right upper lobe. There is a 7 mm average diameter nodule in the right middle lobe. There is an 8 mm average diameter right lower lobe nodule. Several additional pulmonary nodules are seen as well. There is no axillary or supraclavicular lymphadenopathy. There is no mediastinal lymphadenopathy. Heart size is normal. There are mild coronary artery calcifications. No pericardial effusion. Aorta is normal in caliber. Limited views of the upper abdomen are unremarkable. There are no suspicious osseus lesions. IMPRESSION: 1. Multiple pulmonary nodules. Six-month follow-up recommended. LUNG-RADS CATEGORY: 3 MODIFIER: None. Dictated by: Dictated on workstation # [id number]
== END ==
LOC: RAD 13:45
PROVIDERS: ATTEND Hospitalist
DX: Z12.2 Encounter for screening for malignant neoplasm of respiratory organs (principal); R91.8 Other nonspecific abnormal finding of lung field; F17.210 Nicotine dependence, cigarettes, uncomplicated
CPT/HCPCS: 71271

== ENCOUNTER 2022-01-27 05:14 | Emergency (ER) | payer OTHER ==
[~2022-01-27] VITALS: Ht 172.7 cm; Wt 106.4 kg
[2022-01-27 06:14] LABS: BASOPHILS # (AUTO) 0.1 10^3/uL (0.0-0.1); BASOPHILS % (AUTO) 0 % (0-10); EOSINOPHILS # (AUTO) 0.1 10^3/uL (0.0-0.3); EOSINOPHILS % (AUTO) 0 % (0-10); HEMATOCRIT 48 % (40-54); HEMOGLOBIN 17.3 g/dL (13.3-17.7); LYMPHOCYTES # (AUTO) 1.2 10^3/uL (1.0-4.0); LYMPHOCYTES % (AUTO) 9 % (12-44); MEAN CORPUSCULAR HEMOGLOBIN 33 pg (25-34); MEAN CORPUSCULAR HGB CONC 36 g/dL (32-36); MEAN CORPUSCULAR VOLUME 91 fL (80-99); MEAN PLATELET VOLUME 11.1 fL (9.0-12.2); MONOCYTES # (AUTO) 1.2 10^3/uL (0.0-1.0); MONOCYTES % (AUTO) 9 % (0-12); NEUTROPHILS # (AUTO) 11.1 10^3/uL (1.8-7.8); NEUTROPHILS % (AUTO) 82 % (42-75); PLATELET COUNT 166 10^3/uL (130-400); WHITE BLOOD COUNT 13.7 10^3/uL (4.3-11.0)
[2022-01-27 06:28] LABS: ALBUMIN 4.2 GM/DL (3.2-4.5); POTASSIUM 3.5 MMOL/L (3.6-5.0)
[2022-01-27 06:29] LABS: CALCIUM 9.4 MG/DL (8.5-10.1)
[2022-01-27 06:31] LABS: TOTAL PROTEIN 7.7 GM/DL (6.4-8.2)
[2022-01-27 06:32] LABS: BILIRUBIN,TOTAL 1.2 MG/DL (0.1-1.0)
[2022-01-27 06:34] LABS: CREATININE SERUM 0.73 MG/DL (0.60-1.30)
[2022-01-27] MEDS ORDERED: cefTRIAXone 1 GM PRE-MIX 50 ML IV ONE (06:45)
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
[2022-01-27] MEDS ORDERED: NS IV 1000 ML 1,000 ML IV SCH ×2 (07:00→10:30)
[2022-01-27] MEDS ORDERED: VANCOMYCIN INJECTION 1,000 MG in NS (IVPB) 250 ML IV ONE (07:00)
[2022-01-27] MEDS ORDERED: NS 100 ML (IVPB) BAG IV ONE (07:30)
[2022-01-27] MEDS ORDERED: IOHEXOL 350 MG/ML 100 ML (OMNIPAQUE 350) VIAL IV ONE (07:30)
[2022-01-27] MEDS ORDERED: HOLD METFORMIN - RECEIVED CONTRAST 20 ML VIAL IV SCH (07:30)
--- NOTE | 2022-01-27 07:36 | Diagnostic Imaging Report ---
INDICATION: Stridor EXAMINATION: Soft tissue neck 01/27/2022 FINDINGS: 2 views of the neck. There is marked diffuse degenerative disease throughout the visualized cervical spine. Prevertebral soft tissues appear unremarkable. There are no radiopaque foreign bodies. Lung apices clear. IMPRESSION: 1. Chronic degenerative findings throughout the spine. No acute abnormality otherwise noted. 2. Not mentioned above there are hyperdensities in the anterior soft tissues best seen on lateral view with an adjacent tiny screw displaced anteriorly. These are nonspecific but similar to the previous examination dated 02/20/2019. Dictated by: Dictated on workstation # [id number]
--- NOTE | 2022-01-27 07:37 | Diagnostic Imaging Report ---
INDICATION: Stridor. Neck area pain. EXAMINATION: Chest 01/27/2022. COMPARISON: 02/22/2018 FINDINGS: There is bibasilar atelectasis. No infiltrates, effusions or pneumothorax. Heart and pulmonary vasculature normal. IMPRESSION: 1. Bibasilar atelectasis. Dictated by: Dictated on workstation # [id number]
--- NOTE | 2022-01-27 07:40 | Diagnostic Imaging Report ---
PROCEDURE: CT neck soft tissue with contrast. TECHNIQUE: Multiple contiguous axial images were obtained through the neck after the administration of contrast. Auto Exposure Controls were utilized during the CT exam to meet ALARA standards for radiation dose reduction. INDICATION: Hoarseness and neck swelling. Injury, surgery and fall. EXAMINATION: CT soft tissue neck 01/27/2022. COMPARISON: 02/22/2018. FINDINGS: There is a complex appearing cystic collection inferior to the tongue with peripheral and central areas of enhancement. This measures 2.4 x 2.6 x 2.2 cm in size highly suspicious for abscess. There is fluid throughout the oropharynx and pharyngeal recesses. There is a peripheral enhancement noted bilaterally in the pharyngeal recesses likely reactive although developing abscesses in the region difficult to exclude. There is marked fluid immediately anterior to the airway at the level of the hyoid. There is focal narrowing just proximal to the origin of the trachea. Marked soft tissue swelling and edema surrounds the proximal airway and proximal esophagus. There is diffuse bilateral lymphadenopathy likely reactive. Within the visualized intracranial structures there is a cystic collection in the posterior fossa perhaps an arachnoid cyst. Dedicated imaging of the brain on a nonemergent basis could further characterize this finding. There is a large retention polyp or cyst in left maxillary sinus. Mucosal thickening noted in the remaining visualized sinuses. Visualized lung apices appear clear. There is no acute osseous abnormality. However marked degenerative changes and a reversal of the normal curvature of the cervical spine is noted. There are hyperdensities in the region of the hyoid perhaps due to prior surgery with a punctate hyperdensity anterior to the region likely postoperative in nature. Correlate with history. There are focal hyperdensities more proximally adjacent to the carotid arteries likely atherosclerotic disease. Just anterior to the postoperative changes of the hyoid there is a tiny anteriorly displaced screw as seen on recent soft tissue neck examination. IMPRESSION: 1. Focal heterogeneous abscess along the base of the tongue just inferior to the tongue with marked surrounding inflammatory change and edema within the soft tissues of the neck bilaterally. Phlegmonous change within the pharyngeal recesses versus early abscesses right worse than left not excluded. There may be mild compromise of the airway given narrowing proximally as described above, correlate clinically. 2. Reactive adenopathy. 3. Postoperative changes in the region of the hyoid with an anteriorly displace tiny screw noted. Other findings as discussed above. Dictated by: Dictated on workstation # [id number]
[2022-01-27] MEDS ORDERED: LABETALOL HCL 20 MG/4 ML VIAL IV ONE (10:30)
[2022-01-27 11:12] VITALS: BP 158/90
== END 2022-01-27 11:12 | disposition short-term general hospital (02) ==
LOC: EDUNIT# 05:14 → ER 05:17
DX: J39.1 Other abscess of pharynx (principal); J98.8 Other specified respiratory disorders; E66.9 Obesity, unspecified; G47.30 Sleep apnea, unspecified; F17.210 Nicotine dependence, cigarettes, uncomplicated; Z68.35 Body mass index [BMI] 35.0-35.9, adult; Z99.89 Dependence on other enabling machines and devices
CPT/HCPCS: 36415; 70360; 70491; 71045; 80053; 83605; 85025; 86141; 87040; 87430; 87636

== ENCOUNTER 2022-03-26 08:44 | Emergency (ER) | payer OTHER ==
[~2022-03-26] VITALS: Ht 175 cm; Wt 108.0 kg
--- NOTE | 2022-03-26 09:06 | ED EENT ---
History of Present Illness General Chief Complaint: Respiratory Problems Stated Complaint: THROAT SWELLING - SOA Source: patient Exam Limitations: no limitations History of Present Illness Date Seen by Provider: Mar 26, 2022 Time Seen by Provider: 08:57 Initial Comments Patient is a 66yo male who presents to the ER with chief complaint of anterior neck swelling/fullness just under the mandible, feeling short of breath and a voice change. He woke up with these findings this morning. Went to bed last night feeling well - no recent illnesses such as fever, chills earache, runny nose or sore throat. no productive cough or shortness of breath prior to this episode. Fairly complex PMH - significant for traumatic thyroid cartilage injury 2017, s/p tracheotomy and multiple surgeries treated initially here at [facility] and then at [facility] in [place]. Also I saw him at the beginning of January this year for suspected epiglottitis which turned out to be an abscess at the base of the tongue - transferred to [facility], was only inpatient overnight and discharged on steroids and antibiotics - no surgical intervention. Patient is not a diabetic. He does take blood pressure medications - I reviewed my medical records from January visit - none of these are an VINH inhibitor. [facility] and he does not have a current list on him. At presentation room air sats are 94-96%. respirations unlabored. slightly hypertensive. Afebrile. No other complaints of recent illness or injury Timing/Duration: abrupt Severity: moderate Location: throat Prearrival Treatment: no prearrival treatment Associated Symptoms: facial pain/swelling (anterior throat/under mandble), voice change Allergies and Home Medications Allergies Coded Allergies: No Known Drug Allergies (Unverified , 02/21/18) Patient Home Medication List Home Medication List Reviewed: Yes Review of Systems Review of Systems Constitutional: see HPI Eyes: No Symptoms Reported Ears: No Symptoms Reported Nose: no symptoms reported Mouth: other (dentures in place (upper) some fullness noted to the posterior pharynx; MMM; ) Throat: hoarse, other (swelling anterior throat/voice change) Respiratory: no symptoms reported Gastrointestinal: no symptoms reported Musculoskeletal: no symptoms reported Skin: no symptoms reported Neurological: No Symptoms Reported All Other Systems Reviewed Negative Unless Noted: Yes Past Yzzypve-Vsurme-Ifcqio Hx Seasonal Allergies Seasonal Allergies: No Past Medical History Surgeries: Yes (Surgical repair of thyroid cartilage fracture) Respiratory: Yes Sleep Apnea, COPD Currently Using CPAP: Yes Currently Using BIPAP: No Cardiac: Yes Hypertension Neurological: No Sexually Transmitted Disease: No HIV/AIDS: No Genitourinary: No Gastrointestinal: No Musculoskeletal: Yes Gout Endocrine: No HEENT: No Cancer: No Psychosocial: No Integumentary: No Blood Disorders: No Adverse Reaction/Blood Tranf: No Family Medical History No Pertinent Family Hx Physical Exam Vital Signs Vital Signs - First Documented 03/26/22 08:44 Temp 37.1 Pulse 72 Resp 16 B/P (MAP) 182/101 (128) Pulse Ox 96 O2 Delivery Room Air Height, Weight, BMI Height: 5'10.00" Weight: 238lbs. 0.0oz. 107.744336tx; 35.00 BMI Method:Stated General Appearance: WD/WN, no apparent distress Eyes: bilateral eye normal inspection, bilateral eye PERRL, bilateral eye EOMI Nose: normal inspection Mouth/Throat: normal mouth inspection (upper dentures in place), mandibular swelling, uvula swelling (mild), voice changes, other ("hot potato voice"; fullness to the submandibular area/induration about 5x6cm; no skin wounds, overlying erythema/rashes) Neck: other (anterior swelling/submandibular) Cardiovascular: regular rate, rhythm Respiratory: lungs clear, normal breath sounds, no respiratory distress, no accessory muscle use, other (no stridor) Neurologic/Psychiatric: alert, normal mood/affect, oriented x 3 Skin: normal color, warm/dry Progress/Results/Core Measures Results/Orders Lab Results Laboratory Tests Test 03/26/22 08:55 03/26/22 09:13 03/26/22 09:15 03/26/22 09:23 Range/Units Sodium Level 136 135-145 MMOL/L Potassium Level 3.6 3.6-5.0 MMOL/L Chloride Level 102 98-107 MMOL/L Carbon Dioxide Level 25 21-32 MMOL/L Anion Gap 9 5-14 MMOL/L Blood Urea Nitrogen 12 7-18 MG/DL Creatinine 0.74 0.60-1.30 MG/DL Estimat Glomerular Filtration Rate 101 BUN/Creatinine Ratio 16 Glucose Level 110 H 70-105 MG/DL Calcium Level 9.8 8.5-10.1 MG/DL Corrected Calcium 9.6 8.5-10.1 MG/DL Total Bilirubin 1.1 H 0.1-1.0 MG/DL Aspartate Amino Transf (AST/SGOT) 25 5-34 U/L Alanine Aminotransferase (ALT/SGPT) 37 0-55 U/L Alkaline Phosphatase 89 40-136 U/L Total Protein 7.7 6.4-8.2 GM/DL Albumin 4.2 3.2-4.5 GM/DL White Blood Count 12.3 H 4.3-11.0 10^3/uL Red Blood Count 5.29 4.30-5.52 10^6/uL Hemoglobin 17.0 13.3-17.7 g/dL Hematocrit 49 40-54 % Mean Corpuscular Volume 92 80-99 fL Mean Corpuscular Hemoglobin 32 25-34 pg Mean Corpuscular Hemoglobin Concent 35 32-36 g/dL Red Cell Distribution Width 13.0 10.0-14.5 % Platelet Count 164 130-400 10^3/uL Mean Platelet Volume 11.4 9.0-12.2 fL Immature Granulocyte % (Auto) 0 % Neutrophils (%) (Auto) 78 H 42-75 % Lymphocytes (%) (Auto) 12 12-44 % Monocytes (%) (Auto) 9 0-12 % Eosinophils (%) (Auto) 1 0-10 % Basophils (%) (Auto) 0 0-10 % Neutrophils # (Auto) 9.6 H 1.8-7.8 10^3/uL Lymphocytes # (Auto) 1.5 1.0-4.0 10^3/uL Monocytes # (Auto) 1.0 0.0-1.0 10^3/uL Eosinophils # (Auto) 0.1 0.0-0.3 10^3/uL Basophils # (Auto) 0.1 0.0-0.1 10^3/uL Immature Granulocyte # (Auto) 0.0 0.0-0.1 10^3/uL Lactic Acid Level 1.04 0.50-2.00 MMOL/L Urine Color YELLOW Urine Clarity CLEAR Urine pH 7.0 5-9 Urine Specific Garrison 1.010 L 1.016-1.022 Urine Protein NEGATIVE NEGATIVE Urine Glucose (UA) NEGATIVE NEGATIVE Urine Ketones NEGATIVE NEGATIVE Urine Nitrite NEGATIVE NEGATIVE Urine Bilirubin NEGATIVE NEGATIVE Urine Urobilinogen 0.2 < = 1.0 MG/DL Urine Leukocyte Esterase NEGATIVE NEGATIVE Urine RBC (Auto) NEGATIVE NEGATIVE Urine RBC NONE /HPF Urine WBC NONE /HPF Urine Crystals NONE /LPF Urine Bacteria NEGATIVE /HPF Urine Casts NONE /LPF Urine Mucus NEGATIVE /LPF Urine Culture Indicated CULTURE PENDING Glucometer 110 70-110 MG/DL Test 03/26/22 09:40 Range/Units Prothrombin Time 13.3 12.2-14.7 SEC INR Comment 1.0 0.8-1.4 Activated Partial Thromboplast Time 33 24-35 SEC My Orders Orders - HUSSEIN BOOTHE MD Cbc With Automated Diff (03/26/22 09:06) Comprehensive Metabolic Panel (03/26/22 09:06) Blood Culture (03/26/22 09:06) Sputum Culture (03/26/22 09:06) Urinalysis (03/26/22 09:06) Urine Culture (03/26/22 09:06) Protime With Inr (03/26/22 09:06) Partial Thromboplastin Time (03/26/22 09:06) Chest 1 View, Ap/Pa Only (03/26/22 09:06) Ed Iv/Invasive Line Start (03/26/22 09:06) Ed Iv/Invasive Line Start (03/26/22 09:06) Vital Signs Adult Sepsis Patie Q15M (03/26/22 09:06) O2 (03/26/22 09:06) Remove Rings In Anticipation O (03/26/22 09:06) Lactic Acid Analyzer (03/26/22 09:06) Dexamethasone Injection (Decadron Injec (03/26/22 09:15) Ns Iv 1000 Ml (Sodium Chloride 0.9%) (03/26/22 09:15) Accucheck Stat ONCE (03/26/22 09:06) Ct Neck (Soft Tissue) W (03/26/22 09:30) Iohexol Injection (Omnipaque 350 Mg/Ml 1 (03/26/22 09:45) Ns (Ivpb) (Sodium Chloride 0.9% Ivpb Bag (03/26/22 09:45) Ampicillin/Sulbactam Injection (Unasyn 3 (03/26/22 10:45) Metronidazole 500mg/100ml Ivpb (Flagyl 5 (03/26/22 10:45) Ceftriaxone (Rocephin) (03/26/22 11:45) Ceftriaxone (Rocephin) (03/26/22 12:24) Medications Given in ED Current Medications Medications Dose Ordered Sig/Endy Route Start Time Stop Time Status Last Admin Dose Admin Ampicillin Sodium/ Sulbactam Sodium 3 gm/Sodium Chloride 100 ml @ 200 mls/hr ONCE ONCE IV 03/26/22 10:45 03/26/22 11:14 DC 03/26/22 11:52 200 MLS/HR Ceftriaxone Sodium 2000 mg/ Sodium Chloride 50 ml @ 100 mls/hr ONCE ONCE IV 03/26/22 11:45 03/26/22 12:14 DC 03/26/22 12:29 100 MLS/HR Dexamethasone Sodium Phosphate 8 mg ONCE ONCE IV 03/26/22 09:15 03/26/22 09:16 DC 03/26/22 09:20 8 MG Iohexol 100 ml ONCE ONCE IV 03/26/22 09:45 03/26/22 09:46 DC 03/26/22 09:55 75 ML Metronidazole 100 ml @ 100 mls/hr ONCE ONCE IV 03/26/22 10:45 03/26/22 11:44 DC 03/26/22 10:48 100 MLS/HR Sodium Chloride 100 ml ONCE ONCE IV 03/26/22 09:45 03/26/22 09:46 DC 03/26/22 09:56 80 ML Vital Signs/I&O 03/26/22 08:44 Temp 37.1 Pulse 72 Resp 16 B/P (MAP) 182/101 (128) Pulse Ox 96 O2 Delivery Room Air Progress Progress Note #1: Time: 10:47 Progress Note Case discussed with Dr Ramos (ENT here at [facility]); patient exceeds capability of our facility due to complex nature of previous airway trauma, depth of abscess and potential anesthesia complexity. Dr Ramos recc [facility] transfer. Patient is quite upset and doesn't want to go that far. He has been previously treated at [facility] with Dr Pitts for his airway trauma. I contacted [facility], they are at Med Surg capacity at the moment and no ICU beds. I did reach out to Dr Pitts to see if he, too has any other recommendations. [address] Pitts At [facility], he is also agreeable that at the very least, the patient needs inpatient antibiotics and steroids, likely scope and possibly surgical drainage of the abscessed area. Will give him his antibiotics here in the ED and then try in a couple of hours to see if any beds have opened up at [facility]. The patient does not want to be transferred to at this time, nor to [facility] [place] and adamantly refuses transfer back to [facility] in [place]. He very much would like to be transferred where his ENT doctor is in [place]. So we will wait and see and then re-visit about transfer once antibiotics are completed. He also indicated that he would not go by ambulance - that he would prefer to drive to wherever he is transferred. We will have him sign a declination of ambulance transfer if that should be the case and as of now, other than some voice change, he is looking pretty non toxic - NO stridor or respiratory distress or increased work of breathing. NO drooling. NO hypoxia. No painful swallowing. VSS. no tachycardia. All of his labs are reassuring - mild leukocytosis. neg Lactic acid. Progress Note #2: Time: 13:27 Progress Note Notified by the patient's nurse that all of his antibiotics have finished infusing. I went in to reassess him, he states he feels a little bit better. I reexamined his neck and he still has quite a significant amount of swelling and induration under the chin. His vital signs are stable. He still is very hoarse but he feels like his voice is better. I called [facility] back to see if they had developed any difficulty, I was told by direct call, [place], but they are still on MedSurg divert. I explained to the patient that the best case scenario would be for him to allow me to call for transfer for ENT evaluation and possible surgical drainage of the abscess at the base of his tongue. He is absolutely adamant that he will not be transferred anywhere other than to see his doctor at [facility]. I did inform him that [facility] was on divert. I let him know that I had talked to his physician however. The patient states that he would like to leave AGAINST MEDICAL ADVICE here and just drive over to [facility] on his own volition. I have advised him of the risks of leaving AGAINST MEDICAL ADVICE including worsening infection, worsening airway swelling, airway closure and . The patient is adamant that he feels perfectly capable of driving to [place]. He states that at worst case scenario he could drive over to his son's house who lives here in [place] and they will drive him themselves. Patient is counseled on return precautions. He is advised that he definitely needs further IV antibiotics and steroids. I again recommended transfer to however he declined. I am going to go ahead and send a prescription for Augmentin and a Medrol Dosepak to his pharmacy on the off chance that he does not seek other care after leaving [facility]. Diagnostic Imaging Diagonstic Imaging: Xray Plain Films/CT/US/NM/MRI: chest Comments [facility]. [place], [place] NAME: TYLOR MILLER MED REC#: [id number] PT STATUS: REG ER : 1955 PHYSICIAN: HUSSEIN BOOTHE MD ADMIT DATE: 03/26/22/ER Draft Date of Exam:03/26/22 CHEST 1 VIEW, AP/PA ONLY Indication: Dyspnea, voice change. Comparison: 01/27/2022. Discussion: Single portable upright view of the chest was obtained. Stable normal heart size. No consolidation, pleural fluid, or pneumothorax. No osseous abnormality. Impression: 1. Negative chest. Dictated on workstation # [id number] Dict: 03/26/22936 Trans: 03/26/22937 [facility] [id number] Interpreted by: MARLENA AVILEZ MD Electronically signed by: Diagonstic Imaging: CT Comments [facility]. [place], [place] NAME: TYLOR MILLER MED REC#: [id number] PT STATUS: REG ER : 1955 PHYSICIAN: HUSSEIN BOOTHE MD ADMIT DATE: 03/26/22/ER Draft Date of Exam:03/26/22 CT NECK (SOFT TISSUE) W PROCEDURE: CT neck soft tissue with contrast. TECHNIQUE: Multiple contiguous axial images were obtained through the neck after the administration of contrast. Auto Exposure Controls were utilized during the CT exam to meet ALARA standards for radiation dose reduction. INDICATION: Neck pain and swelling, voice change. COMPARISON: 01/27/2022. DISCUSSION: Previously demonstrated somewhat loculated abscess along the base of the tongue measures 3 x 2 x 1.6 cm. This is slightly decreased in width from the prior exam though overall is not significantly changed. There is surrounding soft tissue thickening and induration. The amount of edema within the soft tissues of the vallecula and thickening of the epiglottis is stable. Soft tissue swelling within the tonsillar beds is somewhat decreased. Soft tissue swelling within the supraglottic airway is decreased. Reactive-appearing adenopathy is again noted. The bilateral submandibular glands and parotid glands appear within normal limits. Postoperative changes along the anterior hyoid bone are stable. The lung apices are well-aerated. No acute osseous abnormality identified. 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 Polypoid mucosal thickening again noted within the left maxillary sinus. The orbits appear symmetrical. The visualized intracranial contents are unremarkable. IMPRESSION: 1. Thick-walled enhancing somewhat loculated appearing abscess along the base of the tongue appears essentially stable in overall distribution with the width of the abscess measuring slightly smaller though the other measurements are stable. The associated edema within the vallecula and epiglottis is unchanged. More inferior edema along the supraglottic airway is decreased as is previous edema within the tonsillar beds. Dictated on workstation # [id number] Dict: 03/26/22 0955 Trans: 03/26/22 1008 [facility] [id number] Interpreted by: MARLENA AVILEZ MD Electronically signed by: Critical Care Note Critical Care Start Time: 08:57 Stop Time: 10:00 Total Time (minutes) 45 min critical care time in the evaluation and management of this patient with complaint of neck swelling and voice change and slight feeling of SOB. Time includes initial eval with careful examination of the oropharynx and neck. Assessment of VS - review of medical records and previous images. Discussion with local [facility] in [place], [place] for potential transfer. Serial re- evaluations. Time also includes review of labs and current imaging studies. Fluid resuscitation and medication administration. Departure Communication (Admissions) Time/Spoke to Consulting Phy: 10:[address] Ramos Impression Primary Impression: Airway compromise Additional Impression: abscess base of tongue Disposition: 07 AGAINST MEDICAL ADVICE Condition: Stable Transfer Transfer Reason: Exceeds level of care Departure-Patient Inst. Decision time for Depature: 13:30 Referrals: NO,LOCAL PHYSICIAN (PCP/Family) Primary Care Physician Add. Discharge Instructions: I have gone ahead and sent a prescription for antibiotics and steroids to your pharmacy, in case you decide that you are not going to go see Dr. Pitts. I strongly recommend that you be seen by an ENT doctor as soon as possible, you do need inpatient admission with IV antibiotics and possible drainage of the abscess at the base of your tongue. If you have any worsening swelling of the throat, painful swallowing, difficulty breathing please immediately seek emergent care in the local emergency department. Scripts Methylprednisolone (Methylprednisolone Dose Pack) 4 Mg Tablet 4 MG PO UD for 6 Days, #21 TAB FOLLOW DOSE PACK INSTRUCTIONS Prov: HUSSEIN BOOTHE MD 03/26/22 Amoxicillin/Potassium Clav (Augmentin Xr 1,000-62.5 Tab) 1,000 Mg-62.5 Mg Tab.er.12h 1 EACH PO BID, #20 TAB Prov: HUSSEIN BOOTHE MD 03/26/22 HUSSEIN BOOTHE MD Mar 26, 2022 09:06
[2022-03-26 09:15] LABS: BASOPHILS # (AUTO) 0.1 10^3/uL (0.0-0.1); BASOPHILS % (AUTO) 0 % (0-10); EOSINOPHILS # (AUTO) 0.1 10^3/uL (0.0-0.3); EOSINOPHILS % (AUTO) 1 % (0-10); HEMATOCRIT 49 % (40-54); LYMPHOCYTES # (AUTO) 1.5 10^3/uL (1.0-4.0); LYMPHOCYTES % (AUTO) 12 % (12-44); MEAN CORPUSCULAR HEMOGLOBIN 32 pg (25-34); MEAN CORPUSCULAR HGB CONC 35 g/dL (32-36); MEAN CORPUSCULAR VOLUME 92 fL (80-99); MEAN PLATELET VOLUME 11.4 fL (9.0-12.2); MONOCYTES % (AUTO) 9 % (0-12); NEUTROPHILS # (AUTO) 9.6 10^3/uL (1.8-7.8); NEUTROPHILS % (AUTO) 78 % (42-75); PLATELET COUNT 164 10^3/uL (130-400); WHITE BLOOD COUNT 12.3 10^3/uL (4.3-11.0)
[2022-03-26] MEDS ORDERED: NS IV 1000 ML 1,000 ML IV SCH (09:15)
[2022-03-26 09:16] LABS: ALBUMIN 4.2 GM/DL (3.2-4.5); POTASSIUM 3.6 MMOL/L (3.6-5.0)
[2022-03-26 09:17] LABS: CALCIUM 9.8 MG/DL (8.5-10.1)
[2022-03-26 09:18] LABS: TOTAL PROTEIN 7.7 GM/DL (6.4-8.2)
[2022-03-26 09:20] LABS: BILIRUBIN,TOTAL 1.1 MG/DL (0.1-1.0)
[2022-03-26 09:22] LABS: CREATININE SERUM 0.74 MG/DL (0.60-1.30)
[2022-03-26 09:26] LABS: BILIRUBIN,URINE NEGATIVE (NEGATIVE); CLARITY,URINE CLEAR; COLOR,URINE YELLOW; GLUCOSE, URINE (UA) NEGATIVE (NEGATIVE); KETONES,URINE NEGATIVE (NEGATIVE); LEUKOCYTE ESTERASE ,URINE NEGATIVE (NEGATIVE); NITRITE,URINE NEGATIVE (NEGATIVE); PROTEIN,URINE NEGATIVE (NEGATIVE)
[2022-03-26 09:39] LABS: BACTERIA,URINE NEGATIVE /HPF
--- NOTE | 2022-03-26 09:39 | Diagnostic Imaging Report ---
Indication: Dyspnea, voice change. Comparison: 01/27/2022. Discussion: Single portable upright view of the chest was obtained. Stable normal heart size. No consolidation, pleural fluid, or pneumothorax. No osseous abnormality. Impression: 1. Negative chest. Dictated by: Dictated on workstation # [id number]
[2022-03-26] MEDS ORDERED: IOHEXOL 350 MG/ML 100 ML (OMNIPAQUE 350) VIAL IV ONE (09:45)
[2022-03-26] MEDS ORDERED: NS 100 ML (IVPB) BAG IV ONE (09:45)
[2022-03-26 10:08] LABS: PROTHROMBIN TIME PATIENT 13.3 SEC (12.2-14.7)
--- NOTE | 2022-03-26 10:10 | Diagnostic Imaging Report ---
PROCEDURE: CT neck soft tissue with contrast. TECHNIQUE: Multiple contiguous axial images were obtained through the neck after the administration of contrast. Auto Exposure Controls were utilized during the CT exam to meet ALARA standards for radiation dose reduction. INDICATION: Neck pain and swelling, voice change. COMPARISON: 01/27/2022. DISCUSSION: Previously demonstrated somewhat loculated abscess along the base of the tongue measures 3 x 2 x 1.6 cm. This is slightly decreased in width from the prior exam though overall is not significantly changed. There is surrounding soft tissue thickening and induration. The amount of edema within the soft tissues of the vallecula and thickening of the epiglottis is stable. Soft tissue swelling within the tonsillar beds is somewhat decreased. Soft tissue swelling within the supraglottic airway is decreased. Reactive-appearing adenopathy is again noted. The bilateral submandibular glands and parotid glands appear within normal limits. Postoperative changes along the anterior hyoid bone are stable. The lung apices are well-aerated. No acute osseous abnormality identified. 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 Polypoid mucosal thickening again noted within the left maxillary sinus. The orbits appear symmetrical. The visualized intracranial contents are unremarkable. IMPRESSION: 1. Thick-walled enhancing somewhat loculated appearing abscess along the base of the tongue appears essentially stable in overall distribution with the width of the abscess measuring slightly smaller though the other measurements are stable. The associated edema within the vallecula and epiglottis is unchanged. More inferior edema along the supraglottic airway is decreased as is previous edema within the tonsillar beds. Dictated by: Dictated on workstation # [id number]
[2022-03-26] MEDS ORDERED: metroNIDAZOLE 500MG/100ML IVPB 100 ML IV ONE (10:45)
[2022-03-26] MEDS ORDERED: AMPICILLIN/SULBACTAM INJECTION 3 GM in NS (IVPB) 100 ML IV ONE (10:45)
[2022-03-26] MEDS ORDERED: cefTRIAXone 2,000 MG in NS (IVPB) 50 ML IV ONE (11:45)
[2022-03-26] MEDS ORDERED: cefTRIAXone 2,000 MG VIAL ONE (12:24)
[2022-03-26] MEDS ORDERED: AMOX-356 PO (13:33)
[2022-03-26] MEDS ORDERED: METH4TAB11 PO (13:33)
[2022-03-26 13:39] VITALS: BP 143/105
== END 2022-03-26 13:39 | disposition left against medical advice (07) ==
LOC: EDUNIT# 08:44 → ER 08:45
DX: K14.0 Glossitis (principal); J98.8 Other specified respiratory disorders; G47.30 Sleep apnea, unspecified; Z99.89 Dependence on other enabling machines and devices
CPT/HCPCS: 36415; 70491; 71045; 80053; 81000; 82947; 83605; 85025; 85610; 85730; 87040; 87088